=== PATIENT | female | born 1990 | race Asian ===

== ENCOUNTER → 2016-06-07 | Emergency (ER) | payer OTHER ==
[2016-06-07 19:38] VITALS: BP 138/70; PULSE 96; TEMP 98.4; BMI 27.6
--- NOTE | 2016-06-07 21:01 | PDOC ---
History of Present Illness - General History Source: Patient Exam Limitations: No Limitations - History of Present Illness Aspirin Received prior to arrival: No: 81 mg x 2 <Ronal Willson - Last Filed: 06/07/16 21:05> - General History Source: Patient, Old Records Exam Limitations: No Limitations - History of Present Illness Initial Comments: 06/07/16 22:18 The patient is a 25 year old female, with a significant past medical history of hypothyroidism, who presents to the emergency department with nasal congestion and left facial pain for the past 4-5 days. The patient states that her symptoms feel like sinus discomfort. The patient reports that she has been taking Tylenol and Motrin for her symptoms, with minimal relief. The patient reports sick contacts at home; she reports that both of her children are currently sick. The patient denies fever, chills, headache, sore throat, nausea , vomiting or diarrhea. Allergies: None reported. Past Surgical History: None reported. Social History: Non smoker. Denies alcohol or drug use. PCP: Dr. Garcia <Talisha Silva - Last Filed: 06/08/16 00:14> - General Chief Complaint: Headache Stated Complaint: SWOLLEN FACE Time Seen by Provider: 06/07/16 20:25 Past History - Past Medical History Asthma: No Cancer: No Cardiac Disorders: No Diabetes: No HTN: No Seizures: No Thyroid Disease: Yes - Reproductive History (#): 2 Para: 1 Cervical CA: No Dysfunctional Uterine Bleeding: No Ectopic : No Endometrial CA: No Polycystic Ovaries: No Therapeutic (s) & number: No Tubal Ligation: No Spontaneous : 0 - Psycho/Social/Smoking Cessation Hx Anxiety: No Suicidal Ideation: No Smoking History: Never smoked Have you smoked in the past 12 months: No Hx Alcohol Use: No Drug/Substance Use Hx: No Substance Use Type: None Hx Substance Use Treatment: No <Ronal Willson - Last Filed: 06/07/16 21:05> <Talisha Silva - Last Filed: 06/08/16 00:14> - Past Medical History Allergies/Adverse Reactions: Allergies Allergy/AdvReac Type Severity Reaction Status Date / Time No Known Allergies Allergy Verified 06/07/16 19:35 Home Medications: Ambulatory Orders Levothyroxine [Synthroid -] 100 mcg PO DAILY 11/29/13 Acetaminophen [Tylenol] 325 mg PO QID PRN 06/07/16 Review of Systems - Review of Systems Able to Perform ROS?: Yes Comments:: 06/07/16 21:11 GENERAL/CONSTITUTIONAL: No fever or chills. No weakness. HEAD, EYES, EARS, NOSE AND THROAT: +Nasal congestion, left facial pain. No change in vision. No ear pain or discharge. No sore throat. CARDIOVASCULAR: No chest pain or shortness of breath. RESPIRATORY: No cough, wheezing, or hemoptysis. GASTROINTESTINAL: No nausea, vomiting, diarrhea or constipation. GENITOURINARY: No dysuria, frequency, or change in urination. MUSCULOSKELETAL: No joint or muscle swelling or pain. No neck or back pain. SKIN: No rash. NEUROLOGIC: No headache, vertigo, loss of consciousness, or change in strength/ sensation. ENDOCRINE: No increased thirst. No abnormal weight change. HEMATOLOGIC/LYMPHATIC: No anemia, easy bleeding, or history of blood clots. ALLERGIC/IMMUNOLOGIC: No hives or skin allergy. <Talisha Silva - Last Filed: 06/08/16 00:14> *Physical Exam - Vital Signs Last Vital Signs Temp Pulse Resp BP Pulse Ox 98.4 F 96 H 16 138/70 99 06/07/16 19:37 06/07/16 19:37 06/07/16 19:37 06/07/16 19:37 06/07/16 19:37 <Ronal Willson - Last Filed: 06/07/16 21:05> - Vital Signs Last Vital Signs Temp Pulse Resp BP Pulse Ox 98.4 F 96 H 16 138/70 99 06/07/16 19:37 06/07/16 19:37 06/07/16 19:37 06/07/16 19:37 06/07/16 19:37 - Physical Exam Comments: 06/07/16 21:09 GENERAL: Awake, alert, and fully oriented, in no acute distress. HEAD: Left maxillary and left frontal tenderness to palpation. No signs of trauma. EYES: PERRLA, EOMI, sclera anicteric, conjunctiva clear. ENT: Auricles normal inspection, hearing grossly normal, nares patent, oropharynx clear without exudates. Moist mucosa. NECK: Normal ROM, supple, no lymphadenopathy, JVD, or masses. LUNGS: Breath sounds equal, clear to auscultation bilaterally. No wheezes, and no crackles. HEART: Regular rate and rhythm, normal S1 and S2, no murmurs, rubs or gallops. ABDOMEN: Soft, nontender, normoactive bowel sounds. No guarding, no rebound. No masses. EXTREMITIES: Normal range of motion, no edema. No clubbing or cyanosis. No cords, erythema, or tenderness. NEUROLOGICAL: Cranial nerves II through XII intact. Normal speech, normal gait. SKIN: Warm, dry, normal turgor, no rashes or lesions noted. <Talisha Silva - Last Filed: 06/08/16 00:14> Medical Decision Making - Medical Decision Making 06/07/16 21:02 A portion of this note was documented by scribe services under my direction. I have reviewed the details of the note, within reason, and agree with the documentation with the following case summary and management plan written by me. Patient treated in the ED. Nursing notes are reviewed and incorporated into the medical decision-making. Vital signs reviewed. Peripheral IV access obtained by the nurse, laboratory studies are drawn and sent, reviewed and interpreted by myself. Vital Signs Temp Pulse Resp BP Pulse Ox 98.4 F 96 H 16 138/70 99 06/07/16 19:37 06/07/16 19:37 06/07/16 19:37 06/07/16 19:37 06/07/16 19:37 25-year-old female with past medical history of hypothyroidism presents with left facial pain for several days. Patient reports sinus like discomfort. Reports sick contact with her family. Reports nasal congestion. Has been taking Tylenol Motrin. Came to the ED with her 2 children were also patient's for further evaluation. The patient is nontoxic appearing. I suspect that this is likely viral sinusitis. Supportive care and follow-up with her primary care physician. Return precautions given including high fevers and uncontrollable pain. I discussed the physical exam findings, ancillary test results and final diagnoses with the patient. I answered all of the patient's questions. The patient was satisfied with the care received and felt comfortable with the discharge plan and treatment plan. The patient will call their primary care physician within 24 hours to arrange follow-up and will return to the Emergency Department with any new, persistant or worsening symptoms. <Ronal Willson - Last Filed: 06/07/16 21:05> *DC/Admit/Observation/Transfer - Discharge Dispostion Admit: No <Ronal Willson - Last Filed: 06/07/16 21:05> - Attestations Scribe Attestion: 06/07/16 21:06 Documentation prepared by Talisha Silva, acting as manager medical writing for Ronal Willson MD. <Talisha Silva - Last Filed: 06/08/16 00:14> Diagnosis at time of Disposition: Sinusitis Qualifiers: Sinusitis location: other Chronicity: acute Recurrence: non-recurrent Qualified Code(s): J01.80 - Other acute sinusitis - Discharge Dispostion Disposition: HOME Condition at time of disposition: Stable - Referrals Referrals: Jennifer Garcia MD [Primary Care Provider] - - Patient Instructions Printed Discharge Instructions: DI for Sinusitis Additional Instructions: You likely have viral sinusitis. Please take 600 mg of ibuprofen every 6 hours and or 650 g of Tylenol every 4 hours needed for symptoms. If your symptoms persist for another week, please call your doctor or return to the emergency department for further evaluation.
== END | disposition home or self-care (01) ==
LOC: JER 18:44
DX: J01.80 Other acute sinusitis (principal)
CPT/HCPCS: 99281-25

== ENCOUNTER 2016-10-02 09:15 | Emergency (ER) | payer OTHER ==
[2016-10-02 09:19] VITALS: BP 128/78; PULSE 71; TEMP 98; BMI 27.4
--- NOTE | 2016-10-02 10:01 | PDOC ---
History of Present Illness - General Stated Complaint: RT HAND NUMBNESS Time Seen by Provider: 10/02/16 09:34 History Source: Patient Exam Limitations: No Limitations - History of Present Illness Initial Comments: 10/02/16 10:12 Chief complaint: Right wrist pain with numbness of hand History of present illness: Patient is a 26-year-old female with a history of hypothyroidism here today waning of right medial wrist pain with paresthesia to right hand and digits times one week. Patient denies any injury to her wrist or hand. Patient reports that pain in paresthesia is intermittent and is sharp at times with certain movements. Patient is right hand dominant. Patient denies any radiation of pain up her right forearm or numbness of right forearm. 10/02/16 10:31 Occurred: reports: last week Severity: reports: mild Upper Extremity Pain Location: right: wrist (medial ) Method of Injury: reports: unknown Extremity Pain Location - Extremity Pain Location Extremity Pain Locations: right: other (medial wrist) Past History - Past Medical History Allergies/Adverse Reactions: Allergies Allergy/AdvReac Type Severity Reaction Status Date / Time No Known Allergies Allergy Verified 10/02/16 09:19 Home Medications: Ambulatory Orders NK [No Known Home Medication] 10/02/16 Asthma: No Cancer: No Cardiac Disorders: No Diabetes: No HTN: No Seizures: No Thyroid Disease: Yes - Reproductive History (#): 2 Para: 1 Cervical CA: No Dysfunctional Uterine Bleeding: No Ectopic : No Endometrial CA: No Polycystic Ovaries: No Therapeutic (s) & number: No Tubal Ligation: No Spontaneous : 0 - Immunization History Immunization Up to Date: Yes - Psycho/Social/Smoking Cessation Hx Anxiety: No Suicidal Ideation: No Smoking History: Never smoked Have you smoked in the past 12 months: No Information on smoking cessation initiated: No Hx Alcohol Use: No Drug/Substance Use Hx: No Substance Use Type: None Hx Substance Use Treatment: No Review of Systems - Review of Systems Able to Perform ROS?: Yes Constitutional: No: Symptoms Reported HEENTM: No: Symptoms Reported Respiratory: No: Symptoms reported Cardiac (ROS): No: Symptoms Reported ABD/GI: No: Symptoms Reported : No: Symptoms Reported Musculoskeletal: Yes: Joint Pain (rt. medial wrist ). No: Joint Swelling Integumentary: No: Symptoms Reported Neurological: Yes: Paresthesia (intermittent rt. hand and digits) *Physical Exam - Vital Signs Last Vital Signs Temp Pulse Resp BP Pulse Ox 98 F 71 18 128/78 100 10/02/16 09:16 10/02/16 09:16 10/02/16 09:16 10/02/16 09:16 10/02/16 09:16 - Physical Exam General Appearance: Yes: Appropriately Dressed Comments:: 10/02/16 10:14 radial pulse 4 + rt/ Extremity: positive: Normal Capillary Refill, Normal Inspection, Normal Range of Motion, Tender (rt. mid medial wrist, + Tinel sign, negative Phalen sign rt. ), Other (negative Carlota ). negative: Swelling Integumentary: positive: Normal Color Neurologic: positive: Alert, Normal Response, Respond to painful stimul (rt. wrist/all digits rt. hand ), Responsive Procedures - Consent Consent obtained: From Patient - Splinting Splint Location: Right: Wrist Medical Decision Making - Medical Decision Making 10/02/16 10:05 Patient is a 26-year-old female with a history of hypothyroidism here today waning of right medial wrist pain with paresthesia to right hand and digits times one week. Patient denies any injury to her wrist or hand. Patient reports that pain in paresthesia is intermittent and is sharp at times with certain movements. Patient is right hand dominant. Patient denies any radiation of pain up her right forearm or numbness of right forearm.symptoms could be due to DeQuevain's syndrome or carpel tunnel syndrome Acute carpel tunnel syndrome rt PLAN: rt. wrist splint follow up with ortho , 10/02/16 10:32 *DC/Admit/Observation/Transfer Diagnosis at time of Disposition: Acute carpal tunnel syndrome of right wrist - Discharge Dispostion Disposition: HOME Condition at time of disposition: Stable - Referrals Referrals: Jennifer Garcia MD [Primary Care Provider] - Mart Maria MD [Staff Physician] - Dain Loo MD [Staff Physician] - - Patient Instructions Additional Instructions: Wrist splint on during the day may take off at night Take ibuprofen, or Aleve, or Advil as needed as directed by weatherization and housing inspector for pain Follow-up with orthopedist for further evaluation as soon as possible Avoid any strenuous activities or exercise using her right hand Patient voiced understanding of discharge instructions and all questions were answered
== END 2016-10-02 10:23 | disposition home or self-care (01) ==
LOC: JERFT 09:15
DX: E03.9 Hypothyroidism, unspecified (principal)
CPT/HCPCS: 99281-25

== ENCOUNTER 2018-07-15 07:17 | Day surgery (SDC) | payer OTHER | END 2018-07-19 11:50 | disposition home or self-care (01) | LOC: JONCNONCHE 07:17 → J7W 07-19 09:38 → JONCNONCHE 07-19 11:50 ==

== ENCOUNTER 2018-07-26 06:44 | Day surgery (SDC) | payer OTHER ==
[2018-07-26] MEDS ORDERED: DEXAMETHASONE SODIUM PHOSPHATE 8 MG in SODIUM CHLORIDE 50 ML IVPB ONE (10:00)
[2018-07-26] MEDS ORDERED: FERRIC CARBOXYMALTOSE 750 MG in SODIUM CHLORIDE 250 ML IVPB ONE (10:15)
[2018-07-26 14:03] VITALS: TEMP 98.1
[2018-07-26 14:04] VITALS: BP 113/72; PULSE 83
== END 2018-07-26 11:15 | disposition home or self-care (01) ==
LOC: JONCNONCHE 06:44 → J7W 09:39 → JONCNONCHE 11:15
PROVIDERS: ATTEND Internal Medicine Hematology & Oncology
PROC: 3E033GC Introduction of Other Therapeutic Substance into Peripheral Vein, Percutaneous Approach (ICD-10-PCS; principal; 2018-07-26)
DX: D50.9 Iron deficiency anemia, unspecified (principal)
CPT/HCPCS: 96365; 96375; J1439

== ENCOUNTER 2019-01-31 23:06 | Emergency (ER) | payer OTHER ==
[2019-01-31 23:15] VITALS: BP 147/96; PULSE 96; BMI 29.0
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
[2019-01-31] MEDS ORDERED: IBUPROFEN 400 MG TABLET (FP) PO ONE (23:47)
[2019-02-01] MEDS ORDERED: IBUPROFEN 400 MG TABLET (FP) PO ONE (00:20)
--- NOTE | 2019-02-01 13:31 | EKG ---
Test Reason : Blood Pressure : / mmHG Vent. Rate : 086 BPM Atrial Rate : 086 BPM P-R Int : 158 ms QRS Dur : 080 ms QT Int : 382 ms P-R-T Axes : 066 066 054 degrees QTc Int : 457 ms NORMAL SINUS RHYTHM WITH SINUS ARRHYTHMIA POSSIBLE LEFT ATRIAL ENLARGEMENT BORDERLINE ECG NO PREVIOUS ECGS AVAILABLE Confirmed by MD KONRAD, NUNU ([id number]) on 02/01/2019 1:31:31 PM Referred By: Confirmed By:NUNU SILVESTRE MD
== END 2019-02-01 00:13 | disposition home or self-care (01) ==
LOC: JER 23:06
DX: S20.212A Contusion of left front wall of thorax, initial encounter (principal); W50.1XXA Accidental kick by another person, initial encounter; Y93.F9 Activity, other caregiving; Y92.230 Patient room in hospital as the place of occurrence of the external cause; Y99.0 Civilian activity done for income or pay
CPT/HCPCS: 71045-TC-FY; 93005; 93010; 99282-25

== ENCOUNTER 2019-02-19 16:22 | Emergency (ER) | payer OTHER ==
[2019-02-19 16:47] VITALS: BP 126/88; PULSE 74; BMI 29.4
--- NOTE | 2019-02-19 16:48 | PDOC ---
Rapid Medical Evaluation Chief Complaint: Eye Problem Time Seen by Provider: 02/19/19 16:43 Medical Evaluation: Allergies Allergy/AdvReac Type Severity Reaction Status Date / Time No Known Allergies Allergy Verified 01/31/19 23:15 02/19/19 16:44 Pt presents for an evaluation of blurry vision in the R eye for 3 days. She states she also has R eye pain. Denies getting anything in her eye. Also admits to associated headache. Exam: PERRLA, EOMI, conjunctiva clear Orders: Nothing Pt to proceed to the ER for further evaluation Discharge Disposition - Diagnosis Eye pain Qualifiers: Laterality: right Qualified Code(s): H57.11 - Ocular pain, right eye - Referrals - Patient Instructions - Post Discharge Activity
[2019-02-19] MEDS ORDERED: KETOROLAC TROMETHAMINE 60 MG/2 ML VIAL ONE (16:59)
[2019-02-19] MEDS ORDERED: KETOROLAC TROMETHAMINE 60 MG/2 ML VIAL IM ONE (16:59)
--- NOTE | 2019-02-19 17:13 | PDOC ---
History of Present Illness - General Chief Complaint: Eye Problem Stated Complaint: BLURRY VISION Time Seen by Provider: 02/19/19 16:43 - History of Present Illness Initial Comments: 02/19/19 17:11 28-year-old female without comorbidities presents for right eye pain and headache x3 days after new glasses prescription Past History - Past Medical History Allergies/Adverse Reactions: Allergies Allergy/AdvReac Type Severity Reaction Status Date / Time No Known Allergies Allergy Verified 01/31/19 23:15 Home Medications: Ambulatory Orders Ibuprofen [Motrin -] 600 mg PO TID PRN #21 tablet 01/26/18 Ibuprofen [Motrin -] 600 mg PO TID PRN #21 tablet 01/26/18 Asthma: No Cancer: No Cardiac Disorders: No COPD: No DVT: No Dementia: No Diabetes: No HTN: No Seizures: No Thyroid Disease: Yes - Reproductive History (#): 2 Para: 1 Cervical CA: No Dysfunctional Uterine Bleeding: No Ectopic : No Endometrial CA: No Polycystic Ovaries: No Therapeutic (s) & number: No Tubal Ligation: No Spontaneous : 0 - Immunization History Immunization Up to Date: Yes - Psycho Social/Smoking Cessation Hx Smoking History: Never smoked Have you smoked in the past 12 months: No Information on smoking cessation initiated: No Hx Alcohol Use: No Drug/Substance Use Hx: No Substance Use Type: None Hx Substance Use Treatment: No Review of Systems - Review of Systems HEENTM: Yes: See HPI, Eye Pain Neurological: Yes: Headache *Physical Exam - Vital Signs Last Vital Signs Temp Pulse Resp BP Pulse Ox 74 18 126/88 100 02/19/19 16:44 02/19/19 16:44 02/19/19 16:44 02/19/19 16:44 - Physical Exam 02/19/19 17:12 GENERAL: The patient is awake, alert, and fully oriented, in no acute distress. HEAD: Normal with no signs of trauma. EYES: sclera anicteric, conjunctiva clear. ENT: Ears normal tympanic membranes normal oropharynx clear uvula midline NECK: Normal range of motion LUNGS: Breath sounds equal, clear to auscultation bilaterally. No wheezes, and no crackles. HEART: S1 and S2 without murmur, rub or gallop. ABDOMEN: Soft, nontender, normoactive bowel sounds. No guarding, no rebound. No masses. EXTREMITIES: Normal range of motion, no edema. No clubbing or cyanosis. No cords, erythema, or tenderness. NEUROLOGICAL: Cranial nerves II through XII grossly intact. Normal speech, normal gait. PSYCH: Normal mood, normal affect. SKIN: Warm, Dry, normal turgor, no rashes or lesions noted. ED Treatment Course - Medications Given in the ED: ED Medications Discontinued Medications Generic Name Dose Route Start Last Admin Trade Name Kacey PRN Reason Stop Dose Admin Ketorolac Tromethamine 60 mg 02/19/19 16:59 02/19/19 17:03 Toradol Injection - IM 02/19/19 17:00 60 mg ONCE ONE Administration Medical Decision Making - Medical Decision Making 02/19/19 17:12 Pain relieved after Toradol injection follow-up with ophthalmology return to the emergency room for worsening symptoms 02/19/19 17:13 Patient assures me there is no chance of . She was given injection of Toradol Discharge - Discharge Information Problems reviewed: Yes Clinical Impression/Diagnosis: Eye pain Qualifiers: Laterality: right Qualified Code(s): H57.11 - Ocular pain, right eye Condition: Stable Disposition: HOME - Admission No - Follow up/Referral Referrals: Pepe Puga [Staff Physician] - Hanna Graff MD [Staff Physician] - Amanda Lu MD [Non Staff, Medical] - Leo Diaz MD [Staff Physician] - Manasa Berman MD [Staff Physician] - Nicanor Azevedo MD, MD [Non Staff, Medical] - Ajit Middleton MD [Non Staff, Medical] - Ajit Hilliard [Non Staff, Medical] - Shaun Ortega [Non Staff, Medical] - - Patient Discharge Instructions Additional Instructions: Return to the emergency room for worsening symptoms. Please follow-up with ophthalmology in 2 to 3 days for further evaluation and treatment options. You were given an injection of a long-acting anti-inflammatory in the emergency room do not take any anti-inflammatories until 24 hours after your injection - Post Discharge Activity
== END 2019-02-19 17:28 | disposition home or self-care (01) ==
LOC: JERFT 16:22
PROC: 3E0233Z Introduction of Anti-inflammatory into Muscle, Percutaneous Approach (ICD-10-PCS; principal; 2019-02-19)
DX: H57.11 Ocular pain, right eye (principal)
CPT/HCPCS: 99282-25

== ENCOUNTER 2019-11-09 17:54 | Emergency (ER) | payer OTHER ==
[2019-11-09 18:05] VITALS: BP 129/96; PULSE 90; BMI 29.0
--- NOTE | 2019-11-09 18:40 | PDOC ---
History of Present Illness - General Chief Complaint: Back Pain Stated Complaint: BACK PAIN Time Seen by Provider: 11/09/19 18:14 History Source: Patient Exam Limitations: Clinical Condition - History of Present Illness Initial Comments: 11/09/19 18:36 Patient with no significant past medical history present with complaint of 2-day history of right lower back and flank pain radiating to right low back which is worse when is she sitting certain positions. Patient reported taking Motrin and Tylenol for symptoms with no significant improvement. Denies radiculopathy. 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 Denies nausea, vomiting, fever, chills, hematuria, urinary frequency, urgency. Denies any other symptoms Is this a multiple visit Asthma Patient?: No Timing/Duration: other (2 days) Severity: moderate Modifying Factors: improves with: medication (motrin) Past History - Medical History Allergies/Adverse Reactions: Allergies Allergy/AdvReac Type Severity Reaction Status Date / Time No Known Allergies Allergy Verified 11/09/19 18:05 Home Medications: Ambulatory Orders Ibuprofen [Motrin -] 600 mg PO TID PRN #21 tablet 01/26/18 Ibuprofen [Motrin -] 600 mg PO TID PRN #21 tablet 01/26/18 Cephalexin Monohydrate [Keflex -] 500 mg PO BID 7 Days #14 capsule 11/09/19 Ketorolac Tromethamine [Toradol] 10 mg PO Q8H PRN #16 tablet 11/09/19 Methocarbamol [Robaxin -] 500 mg PO BID #14 tablet 11/09/19 Asthma: No Cancer: No Cardiac Disorders: No COPD: No DVT: No Dementia: No Diabetes: No HTN: No Seizures: No Thyroid Disease: Yes - Reproductive History Is Patient Now?: No (#): 2 Para: 1 Cervical CA: No Dysfunctional Uterine Bleeding: No Ectopic : No Endometrial CA: No Polycystic Ovaries: No Therapeutic (s) & number: No Tubal Ligation: No Spontaneous : 0 - Immunization History Immunization Up to Date: Yes - Psycho-Social/Smoking History Smoking History: Never smoked Have you smoked in the past 12 months: No Review of Systems - Review of Systems Able to Perform ROS?: Yes Is the patient limited Icelandic proficient: No Constitutional: No: Chills, Fever, Malaise HEENTM: No: Symptoms Reported, See HPI, Eye Pain, Blurred Vision, Tearing, Recent change in vision, Double Vision, Cataracts, Ear Pain, Ocular Prothesis, Ear Discharge, Nose Pain, Nose Congestion, Tinnitus, Nose Bleeding, Hearing Loss, Throat Pain, Throat Swelling, Mouth Pain, Dental Problems, Difficulty Swallowing, Mouth Swelling, Other Respiratory: No: Symptoms reported, See HPI, Cough, Orthopnea, Shortness of Breath, SOB with Exertion, SOB at Rest, Stridor, Wheezing, Productive cough, Hemoptysis, Other Cardiac (ROS): No: Symptoms Reported, See HPI, Chest Pain, Edema, Irregular Heart Rate, Lightheadedness, Palpitations, Syncope, Chest Tightness, Other ABD/GI: No: Symptoms Reported, Nausea, Vomiting Musculoskeletal: Yes: Symptoms Reported, See HPI, Back Pain (right lower back pain) Integumentary: No: Symptoms Reported Neurological: No: Headache, Dizziness All Other Systems: Reviewed and Negative *Physical Exam - Vital Signs Last Vital Signs Temp Pulse Resp BP Pulse Ox 90 18 129/96 100 11/09/19 18:01 11/09/19 18:01 11/09/19 18:01 11/09/19 18:01 - Physical Exam 11/09/19 18:40 GENERAL: Well developed, well nourished. Awake and alert. No acute distress. NECK: Supple. Full ROM. CARDIOVASCULAR: Regular rate and rhythm. No murmurs, rubs, or gallops. PULMONARY: No evidence of respiratory distress. Lungs clear to auscultation bilaterally. No wheezing, rales or rhonchi. ABDOMINAL: Soft. Non-tender. Non-distended. No rebound or guarding. No organomegaly. Normoactive bowel sounds. MUSCULOSKELETAL Normal range of motion at all joints. right lower paravertebral muscle of lower lumbar spine of L2-S1 on right side. No midline tenderness. Increased pain to low back with rotation of the hip to the left. No CVA tenderness. SKIN: Warm and dry. Normal capillary refill. No rashes. No jaundice. NEUROLOGICAL: Alert, awake, appropriate. Gait is normal without ataxia. PSYCHIATRIC: Cooperative. Good eye contact. Appropriate mood General Appearance: Yes: Nourished, Appropriately Dressed. No: Apparent Distress Medical Decision Making - Medical Decision Making 11/09/19 18:38 Patient with no significant past medical history present with complaint of 2-day history of right lower back and flank pain radiating to right low back which is worse when is she sitting certain positions. Patient reported taking Motrin and Tylenol for symptoms with no significant improvement. Denies radiculopathy. 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 Denies nausea, vomiting, fever, chills, hematuria, urinary frequency, urgency. Denies any other symptoms Exam significant for right lower paravertebral muscle of lower lumbar spine of L2-S1 on right side. No midline tenderness. Increased pain to low back with rotation of the hip to the left. No CVA tenderness. No abdominal tenderness on exam the patient in no acute distress. Patient symptoms likely musculoskeletal pain versus less likely kidney stone. UA, urine culture and urine hCG lab ordered. Spiral CT ordered to rule out kidney stone. Treat based on imaging and lab results 11/09/19 20:53 CBC shows no acute normality. UA shows leukocytosis with WBCs. Abdominal and pelvic CT shows no acute abnormality. Patient symptoms likely cystitis with muscle pain. Patient stable for discharge on Keflex antibiotic for UTI, Toradol for flank pain and Robaxin for spasm with [employer] PROJECT MANAGER and PCP follow-up Discharge - Discharge Information Problems reviewed: Yes Clinical Impression/Diagnosis: Urinary tract infection Qualifiers: Urinary tract infection type: acute cystitis Hematuria presence: without hematuria Qualified Code(s): N30.00 - Acute cystitis without hematuria Right-sided back pain Qualifiers: Back pain location: low back pain Chronicity: acute Sciatica presence: without sciatica Qualified Code(s): M54.5 - Low back pain Condition: Stable Disposition: HOME - Admission No - Additional Discharge Information Prescriptions: Cephalexin Monohydrate [Keflex -] 500 mg PO BID 7 Days #14 capsule Methocarbamol [Robaxin -] 500 mg PO BID #14 tablet Ketorolac Tromethamine [Toradol] 10 mg PO Q8H PRN #16 tablet PRN Reason: back pain - Follow up/Referral - Patient Discharge Instructions Patient Printed Discharge Instructions: DI for Low Back Pain, DI for Urinary Tract Infection (UTI) Additional Instructions: Your CAT scan is normal and shows no kidney stone. Your urine shows bacteria in the urine with which you are being treated with antibiotics. Take prescribed medication as prescribed for pain and back spasm. Increase fluid intake. Follow-up with your primary care or UTILITY [employer]ISION PROJECT MANAGER if symptoms persist - Post Discharge Activity
--- OUTSIDE RECORDS SUMMARY | 2019-11-09 18:55 | XMS ---
:1990 Author Organization [facility] Support Name Relationship Address Phone [facility] Unavailable [address] [place] [id number] [facility] Unavailable [address] [place] [address] UE Unavailable Unavailable Unavailable MARY AMANDA MOTHER [address] [place] [address] RORY AMANDAOllie [address] [facility] [phone] [place] [address] RORY AMANDAN Unavailable [address] [facility] [place] [id number] Re-disclosure Warning The records that you are about to access may contain information from federally- assisted alcohol or drug abuse programs. If such information is present, then the following federally mandated warning applies: This information has been disclosed to you from records protected by federal confidentiality rules (42 CFR part 2). The federal rules prohibit you from making any further disclosure of this information unless further disclosure is expressly permitted by the written consent of the person to whom it pertains or as otherwise permitted by 42 CFR part 2. A general authorization for the release of medical or other information is NOT sufficient for this purpose. The Federal rules restrict any use of the information to criminally investigate or prosecute any alcohol or drug abuse patient.The records that you are about to access may contain highly sensitive health information, the redisclosure of which is protected by Article 27-F of the [facility] Public Health law. If you continue you may haveaccess to information: Regarding HIV / AIDS; Provided by facilities licensed or operated by the [facility] Office of Mental Health; or Provided by the [facility] Office for People With Developmental Disabilities. If such information is present, then the following [facility] mandated warning applies: This information has been disclosed to you from confidential records which are protected by state law. State law prohibits you from making any further disclosure of this information without the specific written consent of the person to whom it pertains, or as otherwise permitted by law. Any unauthorized further disclosure in violation of state law may result in a fine or half-way sentence or both. A general authorization for the release of medical or other information is NOT sufficient authorization for further disclosure. Allergies and Adverse Reactions Type Description Substance Reaction Status Data Source(s ) No Known No Known Allergies No Known eCW3 ( Lyme Allergies Allergies [facility]) Encounters Encounter Providers Location Date Indications Data Source(s ) Outpatient [facility] 10/15/2018 eCW3 ([facility] A28 12:00:00 AM [facility]) EDT - 10/15/2018 12:00:00 AM EDT Medications Medication Brand Start Product Dose Route Administrative Pharmacy [facility] Indications Reaction Description Data Name Date Form Instructions Instructions Source(s) Paragard UNK 12/18/ active Paragard eCW 3 Intrauterin 2015 Intrauterine (Velazquez e Copper 12:00: [place] 00 AM [facility]) Levothyroxi Synthr active Synthroid eCW3 ne Sodium oid 112 MCG (Velazquez 0.112 MG 112 River Oral Tablet [facility] [Synthroid] [facility]) Synthroid 112 MCG VIT D UNK suspend VIT D eCW3 ed ([facility]) Insurance Providers Payer name Policy type Policy ID Covered Covered republican's Policy P guille / Coverage republican ID relationship to [place] Inf ormation type valera [place] [id number] OT [id number] HEALTHCARE PPO [facility] [id number] [place] [id number] PL[place]P. [place] [id number] [place] [id number] JOB RELATED INJ [place] [id number] [place] [id number] HMO Problems, Conditions, and Diagnoses Code Display Name Description Problem Type Effective Dates Data Source(s) Z30.431 IUD check up IUD check up Problem 07/03/2017 eCW3 ([place] on 12:00:00 AM [facility]) 648.80 Gestational Gestational Problem 09/01/2014 eCW3 (Velazquez diabetes diabetes 12:00:00 AM [facility]) V22.1 Supervision of , NORMAL Problem eCW 3 (Lyme high risk SUPERVISION [facility]) V24.2 visit [facility]) Social History Code Duration Value Status Description Data Source(s ) Smoking 02/13/2019 12:00:00 Never Smoker completed Never Smoker e CW3 ([facility]) Never Smoker completed Never Smoker eCW3 ([facility]) Vital Signs ID Date Data Source UNK Name Value Range Interpretation Code Description Data Source(s) Diastolic blood 69 mm[Hg] 69 mm[Hg] eCW3 ([facility]) Systolic blood 119 mm[Hg] 119 mm[Hg] eCW3 ([facility]) Body temperature 98.1 [degF] 98.1 [degF] eCW3 ( [facility]) Heart rate 20 /min 20 /min eCW3 ([facility]) Body mass index 30.42 kg/m2 30.42 kg/m2 [facility]) Body weight 161 [lb_av] 161 [lb_av] eCW3 ([facility]) Body height 61 [in_i] 61 [in_i] eCW3 ([facility])
[2019-11-09 19:28] LABS: EPI CELLS 12 /uL (0-25.1); HYALINE CASTS 1 /uL (0-3.1); PH,URINE 5.5 (5.0-8.0); URINE APPEARANCE CLEAR; URINE BACTERIA 436 /uL (0-1359); URINE BILIRUBIN NEGATIVE (NEGATIVE); URINE COLOR YELLOW; URINE GLUCOSE (UA) NEGATIVE (NEGATIVE); URINE KETONE NEGATIVE (NEGATIVE); URINE LEUK ESTERASE 3+ (NEGATIVE); URINE NITRITE NEGATIVE (NEGATIVE); URINE PROTEIN NEGATIVE (NEGATIVE); URINE RBC 9 /uL (0-23.9); URINE UROBILINOGEN 0.2 mg/dL (0.2-1.0); URINE WBC 257 /uL (0-25.8)
[2019-11-09 19:45] LABS: HCG,QUALITATIVE URINE Negative
[2019-11-09] MEDS ORDERED: PHENAZOPYRIDINE HCL 100 MG TABLET (FP) PO ONE (19:46)
[2019-11-09] MEDS ORDERED: KETOROLAC TROMETHAMINE 30 MG/1 ML VIAL IM ONE (19:46)
[2019-11-09] MEDS ORDERED: KETOROLAC TROMETHAMINE 30 MG/1 ML VIAL ONE (20:17)
[2019-11-09] MEDS ORDERED: PHENAZOPYRIDINE HCL 100 MG TABLET (FP) ONE (20:17)
== END 2019-11-09 20:50 | disposition home or self-care (01) ==
LOC: JERFT 17:54
PROC: 3E0233Z Introduction of Anti-inflammatory into Muscle, Percutaneous Approach (ICD-10-PCS; principal; 2019-11-09)
DX: M54.5 Low back pain (principal); N30.00 Acute cystitis without hematuria
CPT/HCPCS: 74176-TC; 81003; 84703; 87086; 99285-25

== ENCOUNTER 2020-04-11 11:55 | Emergency (ER) | payer OTHER ==
[2020-04-11 12:02] VITALS: BP 149/76; PULSE 99; TEMP 97; BMI 30.3
[2020-04-11 13:46] LABS: BASO % 0.7 % (0-2.0); HEMATOCRIT 38.8 % (32.4-45.2); HEMOGLOBIN 13.2 GM/dL (10.7-15.3); LYMPH % 31.2 % (8-40); MCH 28.9 pg (25.7-33.7); MEAN CELL VOLUME 84.9 fl (80-96); MEAN PLT VOLUME 8.4 fl (7.5-11.1); MONO % 7.2 % (3.8-10.2); NEUT % 59.9 % (42.8-82.8); PLATELET COUNT 201 K/MM3 (134-434); RBC 4.57 M/mm3 (3.60-5.2); RDW 13.3 % (11.6-15.6); WHITE BLOOD COUNT 5.1 K/mm3 (4.0-10.0)
[2020-04-11 14:05] LABS: CHLORIDE 108 mmol/L (98-107); POTASSIUM 3.8 mmol/L (3.5-5.1); SODIUM 139 mmol/L (136-145)
[2020-04-11 14:07] LABS: CALCIUM 8.8 mg/dL (8.5-10.1)
[2020-04-11 14:08] LABS: ANION GAP 4 MMOL/L (8-16); CO2 27 mmol/L (21-32); GLUCOSE,RANDOM 106 mg/dL (74-106)
[2020-04-11 14:10] LABS: SGPT/ALT 37 U/L (13-61)
[2020-04-11 14:11] LABS: CREATININE 0.7 mg/dL (0.55-1.3); SGOT/AST 12 U/L (15-37)
[2020-04-11 14:12] LABS: BILIRUBIN,TOTAL 0.3 mg/dL (0.2-1); TOT PROT 7.2 g/dl (6.4-8.2)
[2020-04-11 14:14] LABS: ALK PHOS 50 U/L (45-117)
== END 2020-04-11 15:54 | disposition home or self-care (01) ==
LOC: JER 11:55
DX: R07.9 Chest pain, unspecified (principal)
CPT/HCPCS: 36415; 71046-TC-FY; 80053; 82550; 84439; 84443; 84481; 84484; 84702; 85025; 93005; 93010; 99283-25

== ENCOUNTER 2021-03-02 20:41 | Emergency (ER) | payer BC, OTHER ==
[2021-03-02 20:51] VITALS: BP 138/89; PULSE 101; TEMP 98.2; BMI 28.5
[2021-03-02 21:34] LABS: BASO % 0.8 % (0-2.0); EOS % 1.7 % (0-4.5); HEMATOCRIT 39.3 % (32.4-45.2); HEMOGLOBIN 13.4 GM/dL (10.7-15.3); LYMPH % 37.2 % (8-40); MCH 28.2 pg (25.7-33.7); MEAN CELL VOLUME 83.2 fl (80-96); MEAN PLT VOLUME 8.3 fl (7.5-11.1); MONO % 7.5 % (3.8-10.2); NEUT % 52.8 % (42.8-82.8); PLATELET COUNT 228 10^3/uL (134-434); RBC 4.73 M/mm3 (3.60-5.2); RDW 13.1 % (11.6-15.6); WHITE BLOOD COUNT 5.4 K/mm3 (4.0-10.0)
[2021-03-02 21:55] LABS: CALCIUM 8.7 mg/dL (8.5-10.1)
[2021-03-02 21:56] LABS: ALBUMIN 3.9 g/dl (3.4-5.0)
[2021-03-02 21:59] LABS: CREATININE 0.7 mg/dL (0.55-1.3)
[2021-03-02 22:00] LABS: BILIRUBIN,TOTAL 0.3 mg/dL (0.2-1); TOT PROT 7.4 g/dl (6.4-8.2)
== END 2021-03-03 00:05 | disposition home or self-care (01) ==
LOC: JER 20:41
DX: R13.10 Dysphagia, unspecified (principal); E04.1 Nontoxic single thyroid nodule
CPT/HCPCS: 36415; 70490-TC; 80053; 84436; 84443; 84703; 85025; 99284-25

== ENCOUNTER 2021-05-23 15:12 | Emergency (ER) | payer BC, OTHER ==
[2021-05-23 15:24] VITALS: BP 108/65; PULSE 108; TEMP 98.1; BMI 31.4
[2021-05-23] MEDS ORDERED: SODIUM CHLORIDE 1,000 ML IV STA (15:35)
[2021-05-23] MEDS ORDERED: METOCLOPRAMIDE HCL INJECTION 10 MG/2 ML VIAL IVPB ONE ×2 (15:35→17:52)
[2021-05-23] MEDS ORDERED: FAMOTIDINE 20 MG/50 ML IVPB 20 MG/50 ML MG IVPB ONE (15:51)
[2021-05-23] MEDS ORDERED: ACETAMINOPHEN 1000 MG/100 ML BAG IVPB ONE (15:51)
[2021-05-23] MEDS ORDERED: ACETAMINOPHEN INJECTION 100 ML IVPB ONE (15:53)
[2021-05-23 16:49] LABS: URINE APPEARANCE CLEAR; URINE BILIRUBIN NEGATIVE (NEGATIVE); URINE COLOR YELLOW; URINE GLUCOSE (UA) NEGATIVE (NEGATIVE); URINE KETONE NEGATIVE (NEGATIVE); URINE LEUK ESTERASE NEGATIVE (NEGATIVE); URINE NITRITE NEGATIVE (NEGATIVE); URINE PROTEIN NEGATIVE (NEGATIVE); URINE UROBILINOGEN 0.2 mg/dL (0.2-1.0)
[2021-05-23 17:10] LABS: BASO % 0.3 % (0-2.0); EOS % 0.5 % (0-4.5); HEMATOCRIT 38.3 % (32.4-45.2); HEMOGLOBIN 13.1 GM/dL (10.7-15.3); LYMPH % 8.7 % (8-40); MCH 28.7 pg (25.7-33.7); MCHC 34.2 g/dl (32.0-36.0); MEAN CELL VOLUME 83.9 fl (80-96); MEAN PLT VOLUME 8.3 fl (7.5-11.1); MONO % 2.6 % (3.8-10.2); NEUT % 87.9 % (42.8-82.8); PLATELET COUNT 188 10^3/uL (134-434); RBC 4.57 M/mm3 (3.60-5.2); RDW 13.8 % (11.6-15.6); WHITE BLOOD COUNT 5.8 K/mm3 (4.0-10.0)
[2021-05-23 17:29] LABS: ALBUMIN 3.5 g/dl (3.4-5.0); BLOOD UREA NITROGEN 8.6 mg/dL (7-18); CALCIUM 8.8 mg/dL (8.5-10.1)
[2021-05-23 17:32] LABS: CREATININE 0.5 mg/dL (0.55-1.3)
[2021-05-23 17:34] LABS: BILIRUBIN,TOTAL 0.6 mg/dL (0.2-1)
[2021-05-23] MEDS ORDERED: METOCLOPRAMIDE HCL INJECTION 10 MG/2 ML VIAL ONE (17:55)
== END 2021-05-23 18:24 | disposition home or self-care (01) ==
LOC: JERFT 15:12 → JER 15:12 → JERFT 18:24
PROC: 3E033GC Introduction of Other Therapeutic Substance into Peripheral Vein, Percutaneous Approach (ICD-10-PCS; principal; 2021-05-23)
DX: O26.891 Other specified pregnancy related conditions, first trimester (principal); R10.9 Unspecified abdominal pain; Z3A.13 13 weeks gestation of pregnancy
CPT/HCPCS: 36415; 76801-TC; 80053; 81003; 83690; 84702; 85025; 87086; 99284-25

== ENCOUNTER 2021-11-26 07:00 | Inpatient (IN) | payer BC, OTHER ==
[2021-11-26] MEDS: ELECTROLYTE-148 SOLN 1,000 ML IV SCH (07:45)
[2021-11-26 09:37] LABS: BASO % 0.4 % (0-2.0); EOS % 0.7 % (0-4.5); HEMATOCRIT 34.4 % (32.4-45.2); HEMOGLOBIN 11.4 GM/dL (10.7-15.3); LYMPH % 25.8 % (8-40); MCH 27.5 pg (25.7-33.7); MEAN CELL VOLUME 83.4 fl (80-96); MEAN PLT VOLUME 8.4 fl (7.5-11.1); MONO % 5.9 % (3.8-10.2); NEUT % 67.2 % (42.8-82.8); PLATELET COUNT 205 10^3/uL (134-434); RBC 4.13 M/mm3 (3.60-5.2); RDW 14.5 % (11.6-15.6); WHITE BLOOD COUNT 6.1 K/mm3 (4.0-10.0)
[2021-11-26 09:45] VITALS: BMI 32.5
[2021-11-26 09:53] LABS: INR 0.97 (0.83-1.09); PROTHROMBIN TIME (PATIENT) 11.1 SEC (9.7-13.0)
[2021-11-26 09:56] LABS: ACTIVATED PTT 29.4 SECONDS (25.2-36.5)
[2021-11-26 10:05] LABS: BLOOD UREA NITROGEN 14.3 mg/dL (7-18)
[2021-11-26 10:09] LABS: CREATININE 0.6 mg/dL (0.55-1.3)
[2021-11-26] MEDS ORDERED: OXYTOCIN 20 UNITS in 0.9% NS 20 UNIT/1,000 ML INFUS.BAG IV ONE ×3 (10:18→12:46)
[2021-11-26] MEDS ORDERED: METHYLERGONOVINE MALEATE 0.2 MG/1 ML AMP IM PRN (10:55)
[2021-11-26] MEDS ORDERED: BISACODYL 10 MG SUPP.RECT RC PRN (10:55)
[2021-11-26] MEDS ORDERED: WITCH HAZEL 50% (TUCKS) 40 PAD/JAR PAD TP PRN (10:55)
[2021-11-26] MEDS ORDERED: BENZOCAINE 28 GM HEMORRHOIDAL OINTMENT TP PRN (10:55)
[2021-11-26] MEDS ORDERED: BENZOCAINE 20% 57 GM BOTTLE TP PRN (10:55)
[2021-11-26] MEDS ORDERED: ACETAMINOPHEN 325 MG TABLET (FP) PO PRN (10:55)
[2021-11-26] MEDS ORDERED: oxyCODONE HCL 5 MG TABLET PO PRN (10:55)
[2021-11-26] MEDS ORDERED: OXYTOCIN 20 UNITS in 0.9% NS 20 UNIT/1,000 ML INFUS.BAG IV SCH (11:00)
[2021-11-26] MEDS ORDERED: IBUPROFEN 600 MG TABLET (FP) PO ONE (11:17)
[2021-11-26] MEDS: IBUPROFEN 600 MG TABLET (FP) PO PRN (11:25)
[2021-11-26 12:04] LABS: HIV INTERPRETATION NEGATIVE (NEGATIVE)
[2021-11-26 12:23] LABS: CORD BASE EXCESS -5.6 mmol/L (0-2); CORD HCO3 23.1 mmHg (20-29); CORD PCO2 56.7 mmHg (30-78); CORD pH 7.227 (7.14-7.44)
[2021-11-26 12:25] LABS: CORD BASE EXCESS -2.3 mmol/L (0-2); CORD HCO3 23.6 mmHg (20-29); CORD PCO2 44.7 mmHg (30-78); CORD pH 7.341 (7.14-7.44)
[2021-11-26 13:28] VITALS: RESP 18
[2021-11-26] MEDS: FERROUS SO4 325 MG TABLET (FP) PO SCH (17:43)
[2021-11-27] MEDS: IBUPROFEN 600 MG TABLET (FP) PO PRN ×2 (01:57→21:55)
[2021-11-27] MEDS: LEVOTHYROXINE NA 125 MCG TABLET (FP) PO SCH (06:12)
[2021-11-27] MEDS: FERROUS SO4 325 MG TABLET (FP) PO SCH ×2 (08:39→17:11)
[2021-11-27 09:21] LABS: BASO % 0.4 % (0-2.0); EOS % 0.9 % (0-4.5); HEMATOCRIT 33.8 % (32.4-45.2); LYMPH % 20.6 % (8-40); MCH 27.5 pg (25.7-33.7); MCHC 32.5 g/dl (32.0-36.0); MEAN CELL VOLUME 84.7 fl (80-96); MEAN PLT VOLUME 8.2 fl (7.5-11.1); MONO % 4.3 % (3.8-10.2); NEUT % 73.8 % (42.8-82.8); PLATELET COUNT 177 10^3/uL (134-434); RBC 3.99 M/mm3 (3.60-5.2); RDW 14.7 % (11.6-15.6); WHITE BLOOD COUNT 6.7 K/mm3 (4.0-10.0)
[2021-11-27] MEDS: PRENATAL VITAMINS W/ FOLIC ACID TABLET (FP) PO SCH (10:12)
[2021-11-27] MEDS ORDERED: SENNOSIDES/DOCUSATE COMBO (SENNA PLUS) TABLET (UD) PO PRN (22:00)
[2021-11-28] MEDS: LEVOTHYROXINE NA 125 MCG TABLET (FP) PO SCH (06:16)
[2021-11-28 08:00] VITALS: BP 114/71; PULSE 81; TEMP 97.7
[2021-11-28] MEDS: FERROUS SO4 325 MG TABLET (FP) PO SCH (08:31)
[2021-11-28] MEDS: ELECTROLYTE-148 SOLN 1,000 ML IV SCH (08:31)
[2021-11-28] MEDS: PRENATAL VITAMINS W/ FOLIC ACID TABLET (FP) PO SCH (09:42)
== END 2021-11-28 15:30 | disposition home or self-care (01) | DRG 807 ==
LOC: JLDR 07:00 → J3W 13:00
PROVIDERS: ADMIT Obstetrics & Gynecology; ATTEND Obstetrics & Gynecology
PROC: 10E0XZZ Delivery of Products of Conception, External Approach (ICD-10-PCS; principal; 2021-11-26)
PROC: 0W8NXZZ Division of Female Perineum, External Approach (ICD-10-PCS; 2021-11-26)
PROC: 0HQ9XZZ Repair Perineum Skin, External Approach (ICD-10-PCS; 2021-11-26)
DX: O42.02 Full-term premature rupture of membranes, onset of labor within 24 hours of rupture (principal); Z37.0 Single live birth; O69.81X0 Labor and delivery complicated by cord around neck, without compression, not applicable or unspecified; O99.284 Endocrine, nutritional and metabolic diseases complicating childbirth; E03.9 Hypothyroidism, unspecified; O24.420 Gestational diabetes mellitus in childbirth, diet controlled; Z3A.37 37 weeks gestation of pregnancy
CPT/HCPCS: 36415; 36600; 59409; 80048; 82803; 82962; 85025; 85461; 85610; 85730; 86780; 86850; 86870; 86900; 86901; 86902; 86999; 87389; C9803-CS; U0003; U0005

== ENCOUNTER 2022-09-16 06:36 | Emergency (ER) | payer OTHER, BC ==
[2022-09-16 06:49] VITALS: BP 124/85; PULSE 82; RESP 18; TEMP 98.5; BMI 29.6
[2022-09-16 07:35] LABS: BASO % 0.6 % (0-2.0); EOS % 2.6 % (0-4.5); HEMATOCRIT 37.8 % (32.4-45.2); HEMOGLOBIN 12.9 GM/dL (10.7-15.3); LYMPH % 32.6 % (8-40); MCH 28.4 pg (25.7-33.7); MEAN CELL VOLUME 83.5 fl (80-96); MEAN PLT VOLUME 8.5 fl (7.5-11.1); MONO % 6.1 % (3.8-10.2); NEUT % 58.1 % (42.8-82.8); PLATELET COUNT 198 10^3/uL (134-434); RBC 4.53 M/mm3 (3.60-5.2); RDW 13.4 % (11.6-15.6)
[2022-09-16] MEDS ORDERED: RALTEGRAVIR POTASSIUM 400 MG TAB PO ONE (08:02)
[2022-09-16] MEDS ORDERED: EMTRICITABINE 200MG/TENOFOVIR 300MG PO ONE (08:02)
[2022-09-16 08:52] LABS: HIV INTERPRETATION NEGATIVE (NEGATIVE)
[2022-09-16 09:45] LABS: POTASSIUM 4.5 mmol/L (3.5-5.1)
[2022-09-16 09:47] LABS: CALCIUM 8.6 mg/dL (8.5-10.1)
[2022-09-16 09:48] LABS: BLOOD UREA NITROGEN 17.3 mg/dL (7-18)
[2022-09-16 09:49] LABS: URIC ACID 5.8 mg/dL (2.6-7.2)
[2022-09-16 09:50] LABS: CREATININE 0.8 mg/dL (0.55-1.3)
[2022-09-16 09:51] LABS: TOT PROT 7.6 g/dl (6.4-8.2)
[2022-09-16 09:53] LABS: BILIRUBIN,TOTAL 0.3 mg/dL (0.2-1)
== END 2022-09-16 09:03 | disposition home or self-care (01) ==
LOC: JER 06:36
DX: S61.032A Puncture wound without foreign body of left thumb without damage to nail, initial encounter (principal); W46.1XXA Contact with contaminated hypodermic needle, initial encounter
CPT/HCPCS: 36415; 80053; 82465; 82977; 83615; 84100; 84478; 84550; 85025; 86704; 86803; 87340; 87389; 87517; 99283-25

== ENCOUNTER 2022-10-21 08:01 | Emergency (ER) | payer BC, OTHER ==
[2022-10-21 08:06] VITALS: BP 122/83; PULSE 78; RESP 18; TEMP 97.9; BMI 30.2
[2022-10-21] MEDS ORDERED: ACETAMINOPHEN 500 MG TABLET (FP) PO ONE (08:26)
[2022-10-21] MEDS ORDERED: ACETAMINOPHEN 500 MG TABLET (FP) ONE (08:29)
== END 2022-10-21 09:13 | disposition home or self-care (01) ==
LOC: JERFT 08:01 → JER 08:01 → JERFT 09:13
DX: M79.672 Pain in left foot (principal)
CPT/HCPCS: 73630-TC-LT; 99283-25

== ENCOUNTER 2023-05-29 08:13 | Emergency (ER) | payer BC, OTHER ==
[2023-05-29 08:19] VITALS: BP 119/82; PULSE 94; RESP 18; TEMP 97.8; BMI 30.4
[2023-05-29] MEDS ORDERED: IBUPROFEN 600 MG TABLET (FP) PO ONE (10:57)
[2023-05-29] MEDS: IBUPROFEN 600 MG TABLET (FP) PO ONE (11:04)
== END 2023-05-29 12:02 | disposition home or self-care (01) ==
LOC: JER 08:13
DX: M13.0 Polyarthritis, unspecified (principal); M25.541 Pain in joints of right hand; M25.542 Pain in joints of left hand; M25.571 Pain in right ankle and joints of right foot; M25.572 Pain in left ankle and joints of left foot; Z20.822 Contact with and (suspected) exposure to COVID-19
CPT/HCPCS: 0241U-QW; 84703; 99283-25